=== PATIENT | female | born 1955 | race Two or more races ===

== ENCOUNTER → 2022-05-09 06:22 | Outpatient (CLI) | payer OTHER | END | disposition home or self-care (01) | LOC: LAB 06:22 | PROVIDERS: ATTEND Internal Medicine | DX: U07.1 COVID-19 (principal); B34.1 Enterovirus infection, unspecified ==

== ENCOUNTER 2022-05-09 06:59 | Outpatient (CLI) | payer OTHER | END 2022-05-09 07:01 | disposition home or self-care (01) | LOC: NUCLEAR 06:59 | PROVIDERS: ATTEND Internal Medicine Cardiovascular Disease | DX: I25.10 Atherosclerotic heart disease of native coronary artery without angina pectoris (principal) | CPT/HCPCS: 78452; 93017; A9500 ==

== ENCOUNTER 2023-02-03 11:10 | Outpatient (CLI) | payer OTHER | END 2023-02-03 11:25 | disposition home or self-care (01) | LOC: TOM 11:10 | PROVIDERS: ATTEND Internal Medicine Cardiovascular Disease | DX: J45.909 Unspecified asthma, uncomplicated (principal); R06.02 Shortness of breath ==

== ENCOUNTER 2023-02-03 12:20 | Outpatient (CLI) | payer OTHER ==
[2023-02-03 13:31] LABS: CREATININE SERUM 0.78 mg/dL (0.55-1.02)
== END 2023-02-03 12:24 | disposition home or self-care (01) ==
LOC: LAB 12:20
PROVIDERS: ATTEND Radiology Diagnostic Radiology
DX: R10.9 Unspecified abdominal pain (principal)

== ENCOUNTER 2023-02-05 07:36 | Outpatient (CLI) | payer OTHER | END 2023-02-05 07:55 | disposition home or self-care (01) | LOC: TOM 07:36 | DX: R10.9 Unspecified abdominal pain (principal) | CPT/HCPCS: 74177; Q9965 ==

== ENCOUNTER 2024-08-26 07:06 | Outpatient (CLI) | payer OTHER | END 2024-08-26 07:08 | disposition home or self-care (01) | LOC: NUCLEAR 07:06 | PROVIDERS: ATTEND Internal Medicine | DX: I20.9 Angina pectoris, unspecified (principal) | CPT/HCPCS: 78452; 93017; A9500; J0153 ==